=== PATIENT | male | born 1980 | race Asian ===

== ENCOUNTER 2024-04-11 02:05 | Inpatient (IN) | payer OTHER ==
[~2024-04-11] VITALS: Ht 170.2 cm; Wt 63.5 kg
[2024-04-11] VITALS (9 sets, daily range): BP systolic 93–145; BP diastolic 36–71; PULSE 67–79; RESP 18–29; TEMP 98–101; O2SAT 97–100
[~2024-04-11 02:05] MED LIST: DEXAMETHASONE 4 MG/ML VIAL ONE; ONDANSETRON 4 MG/2 ML VIAL ONE; PROPOFOL 200 MG/20 ML VIAL IV ONE; ROCURONIUM 50 MG/5 ML VIAL IV ONE
[2024-04-11 02:58] LABS: BASOPHILS % (AUTO) 0.2 % (0.0-2.0); EOSINOPHILS # (AUTO) 0.1 K/uL (0-0.4); EOSINOPHILS % (AUTO) 1.1 % (0.0-4.0); HEMATOCRIT 45.2 % (36-52); HEMOGLOBIN 15.1 g/dL (12.0-18.0); LYMPHOCYTES # (AUTO) 0.5 K/uL (2.0-11.5); LYMPHOCYTES % (AUTO) 6.2 % (20.5-51.1); MEAN CORPUSCULAR HEMOGLOBIN 30 pg (27-31); MEAN CORPUSCULAR HGB CONC 33 g/dL (33-37); MEAN CORPUSCULAR VOLUME 89.6 fL (80-94); MONOCYTES # (AUTO) 0.7 K/uL (0.8-1.0); MONOCYTES % (AUTO) 8.8 % (1.7-9.3); NEUTROPHILS # (AUTO) 6.4 K/uL (1.8-7.7); NEUTROPHILS % (AUTO) 83.7 % (42.2-75.2); PLATELET COUNT (AUTO) 276 K/uL (140-450); RED BLOOD CELL COUNT(AUTO) 5.04 MIL/uL (4.20-6.10); RED CELL DISTRIBUTION WIDTH 14.4 % (11.6-13.7); WHITE BLOOD COUNT (AUTO) 7.7 K/uL (4.8-10.8)
[2024-04-11] MEDS ORDERED: PIPERACILLIN/TAZOBACTAM 3.375 GM VIAL IV ONE (03:04)
[2024-04-11 03:12] LABS: ANION GAP 14.9 (8-16); CALCIUM 9.3 mg/dL (8.5-10.1); CARBON DIOXIDE 27.6 mmol/L (21-32); CREATININE 0.8 mg/dL (0.6-1.3)
[2024-04-11] MEDS: PIPERACILLIN/TAZOBACTAM 3.375 GM in DEXT 5% MINI-BAG PLUS 50 ML IV ONE (03:18)
[2024-04-11 03:24] LABS: POTASSIUM 6.5 mmol/L (3.5-5.1)
[2024-04-11 03:28] LABS: ALANINE AMINOTRANSFERASE 66 U/L (12-78); ALBUMIN 3.1 g/dL (3.4-5.0); ALKALINE PHOSPHATASE 134 U/L (50-136); ASPARTATE AMINOTRANSFERASE 39 U/L (15-37); BILIRUBIN,DIRECT 0.1 mg/dL (0.0-0.3); TOTAL BILIRUBIN 0.2 mg/dL (0.0-1.0); TOTAL PROTEIN, SERUM 7.7 g/dL (6.4-8.2)
[2024-04-11] MEDS: NACL 0.9% 2,000 ML IV SCH (03:33)
[2024-04-11 03:39] LABS: LACTIC ACID 4.3 mmol/L (0.4-2.0)
[2024-04-11 04:11] LABS: INR 0.96 (0.8-1.2); PARTIAL THROMBOPLASTIN TIME 23.4 secs (22-35.6); PROTHROMBIN TIME 10.1 secs (10.8-13.4)
[2024-04-11] MEDS ORDERED: KEP500L GT (05:50)
[2024-04-11] MEDS ORDERED: NOVR SUBQ (05:50)
[2024-04-11] MEDS ORDERED: LOSA-272 PO (05:54)
[2024-04-11] MEDS ORDERED: LORA-476 PO (05:54)
[2024-04-11] MEDS ORDERED: METO50TE2 PO (05:57)
[2024-04-11] MEDS ORDERED: METH100S16 (05:57)
[2024-04-11] MEDS ORDERED: SODIUM BICARBONATE 8.4% PFS 50 MEQ/50 ML SYR IVP ONE (06:01)
[2024-04-11] MEDS: CALCIUM GLUC 1 GM/50 mL NS BAG 50 ML IV ONE (06:09)
[2024-04-11] MEDS: SODIUM BICARBONATE 8.4% PFS 50 MEQ/50 ML SYR IVP ONE (06:11)
[2024-04-11 07:27] LABS: ANION GAP 10.5 (8-16); CALCIUM 8.9 mg/dL (8.5-10.1); CARBON DIOXIDE 29.6 mmol/L (21-32); CREATININE 0.8 mg/dL (0.6-1.3); POTASSIUM 4.1 mmol/L (3.5-5.1)
[2024-04-11] MEDS: DEXTROSE 50% 50 ML SYR IVP ONE (07:53)
[2024-04-11] MEDS: NACL 0.9% 1,000 ML IV ONE (08:48)
[2024-04-11] MEDS: levETIRAcetam 500 MG in NACL 0.9% 100 ML IV SCH ×2 (09:39→20:35)
[2024-04-11] MEDS ORDERED: DEXTROSE 50% 50 ML SYR IVP PRN ×2 (10:35→13:35)
[2024-04-11] MEDS: BLOOD GLUCOSE MONITORING 1 DEV DEV FS SCH ×2 (11:06→16:42)
[2024-04-11] MEDS: PIPERACILLIN/TAZOBACTAM 3.375 GM in DEXTROSE 5% 50 ML IV SCH (11:46)
[2024-04-11] MEDS ORDERED: LORazepam 1 MG TAB PO PRN (13:20)
[2024-04-11] MEDS ORDERED: HYDROcodone/APAP 7.5/325 MG 1 TAB PO PRN (13:35)
[2024-04-11] MEDS ORDERED: ALBUTEROL SULFATE/IPRATROPIU 3 ML SOL IH PRN (13:35)
[2024-04-11] MEDS ORDERED: ONDANSETRON 4 MG/2 ML VIAL IVP PRN (13:35)
[2024-04-11] MEDS ORDERED: INSULIN LISPRO SLIDING SCALE 100 UNITS/ML VIAL SUBQ PRN (13:35)
[2024-04-11] MEDS ORDERED: HYDROcodone/APAP 7.5/325 MG 1 TAB GT PRN (14:13)
[2024-04-11] MEDS ORDERED: ACETAMINOPHEN 650 MG/20.3 ML UDC GT PRN (14:15)
[2024-04-11 14:52] LABS: BASOPHILS % (AUTO) 0.4 % (0.0-2.0); EOSINOPHILS # (AUTO) 0.1 K/uL (0-0.4); HEMATOCRIT 44.5 % (36-52); HEMOGLOBIN 14.3 g/dL (12.0-18.0); LYMPHOCYTES # (AUTO) 0.9 K/uL (2.0-11.5); LYMPHOCYTES % (AUTO) 10.1 % (20.5-51.1); MEAN CORPUSCULAR HEMOGLOBIN 30 pg (27-31); MEAN CORPUSCULAR HGB CONC 32 g/dL (33-37); MEAN CORPUSCULAR VOLUME 91.8 fL (80-94); MONOCYTES # (AUTO) 0.8 K/uL (0.8-1.0); MONOCYTES % (AUTO) 9.5 % (1.7-9.3); NEUTROPHILS # (AUTO) 6.7 K/uL (1.8-7.7); PLATELET COUNT (AUTO) 353 K/uL (140-450); RED BLOOD CELL COUNT(AUTO) 4.84 MIL/uL (4.20-6.10); RED CELL DISTRIBUTION WIDTH 14.5 % (11.6-13.7); WHITE BLOOD COUNT (AUTO) 8.5 K/uL (4.8-10.8)
[2024-04-11 15:02] LABS: INR 1.01 (0.8-1.2); PARTIAL THROMBOPLASTIN TIME 24.7 secs (22-35.6); PROTHROMBIN TIME 10.6 secs (10.8-13.4)
[2024-04-11 15:47] LABS: ANION GAP 16.1 (8-16); CALCIUM 9.2 mg/dL (8.5-10.1); CARBON DIOXIDE 26.1 mmol/L (21-32); CREATININE 0.7 mg/dL (0.6-1.3); POTASSIUM 4.2 mmol/L (3.5-5.1)
[2024-04-11 15:55] LABS: LACTIC ACID 2.1 mmol/L (0.4-2.0)
[2024-04-11 16:11] LABS: AMYLASE 128 U/L (25-115); CHOL/HDL RATIO 2.7 (1-4.5); CHOLESTEROL 96 mg/dL (<200); FREE T4 (FREE THYROXINE) 0.84 ng/dL (0.76-1.46); HDL CHOLESTEROL 36 mg/dL (40-60); LDL (CALC) 47 mg/dL (60-100); LIPASE 75 U/L (16-77); MAGNESIUM 1.9 mg/dL (1.8-2.4); PHOSPHORUS 3.3 mg/dL (2.5-4.9); THYROID STIMULATING HORMONE 1.76 uIU/mL (0.34-3.74); TRIGLYCERIDES 67 mg/dL (30-150)
[2024-04-11] MEDS: ALBUTEROL SULFATE/IPRATROPIU 3 ML SOL IH SCH (19:22)
[2024-04-11] MEDS: DOCUSATE 100 MG/10 ML UDC GT SCH (20:56)
[2024-04-11] MEDS: METOPROLOL 25 MG TAB GT SCH (20:56)
[2024-04-12] VITALS (11 sets, daily range): BP systolic 105–132; BP diastolic 65–74; PULSE 56–105; RESP 18–20; TEMP 98.2–99.2; O2SAT 90–96
[2024-04-12] MEDS: INSULIN LISPRO SLIDING SCALE 100 UNITS/ML VIAL SUBQ PRN (06:32)
[2024-04-12 07:15] LABS: BASOPHILS # (AUTO) 0.1 K/uL (0.00-0.22); BASOPHILS % (AUTO) 1.2 % (0.0-2.0); EOSINOPHILS # (AUTO) 0.1 K/uL (0-0.4); EOSINOPHILS % (AUTO) 0.5 % (0.0-4.0); HEMATOCRIT 41.8 % (36-52); HEMOGLOBIN 13.8 g/dL (12.0-18.0); LYMPHOCYTES # (AUTO) 0.3 K/uL (2.0-11.5); LYMPHOCYTES % (AUTO) 3.5 % (20.5-51.1); MEAN CORPUSCULAR HEMOGLOBIN 30 pg (27-31); MEAN CORPUSCULAR HGB CONC 33 g/dL (33-37); MEAN CORPUSCULAR VOLUME 90.5 fL (80-94); MONOCYTES # (AUTO) 0.6 K/uL (0.8-1.0); NEUTROPHILS # (AUTO) 8.8 K/uL (1.8-7.7); NEUTROPHILS % (AUTO) 88.8 % (42.2-75.2); PLATELET COUNT (AUTO) 259 K/uL (140-450); RED BLOOD CELL COUNT(AUTO) 4.62 MIL/uL (4.20-6.10); RED CELL DISTRIBUTION WIDTH 14.6 % (11.6-13.7); WHITE BLOOD COUNT (AUTO) 9.9 K/uL (4.8-10.8)
[2024-04-12 07:23] LABS: ANION GAP 13.8 (8-16); CALCIUM 9.3 mg/dL (8.5-10.1); CARBON DIOXIDE 25.9 mmol/L (21-32); CREATININE 0.8 mg/dL (0.6-1.3); POTASSIUM 3.7 mmol/L (3.5-5.1)
[2024-04-12 07:27] LABS: MAGNESIUM 1.7 mg/dL (1.8-2.4); PHOSPHORUS 2.4 mg/dL (2.5-4.9)
[2024-04-12] MEDS: PANTOPRAZOLE 40 MG INJ VIAL IVP SCH (08:35)
[2024-04-12] MEDS: LOSARTAN 50 MG TAB GT SCH (08:35)
[2024-04-12] MEDS: MAG SULF 2000 MG/WATER PREMIX 50 ML IV SCH (08:37)
[2024-04-12] MEDS ORDERED: levETIRAcetam 100 MG/ML ORASYR GT SCH (09:00)
[2024-04-12] MEDS ORDERED: METOPROLOL SUCCINATE 50 MG TABER PO SCH (09:00)
[2024-04-12] MEDS: LORazepam 1 MG TAB GT PRN (11:36)
[2024-04-12] MEDS: POTASSIUM PHOSPHATE 15 MM in NACL 0.9% 250 ML IV SCH (12:47)
[2024-04-12] MEDS: levETIRAcetam 1,000 MG in NACL 0.9% 100 ML IV SCH (21:17)
[2024-04-13] VITALS (7 sets, daily range): BP systolic 94–104; BP diastolic 48–58; PULSE 75–96; RESP 18; TEMP 97.9–99.2; O2SAT 76–97
[2024-04-13 06:35] LABS: BASOPHILS % (AUTO) 0.5 % (0.0-2.0); HEMATOCRIT 40.4 % (36-52); HEMOGLOBIN 13.3 g/dL (12.0-18.0); LYMPHOCYTES # (AUTO) 0.8 K/uL (2.0-11.5); LYMPHOCYTES % (AUTO) 9.2 % (20.5-51.1); MEAN CORPUSCULAR HEMOGLOBIN 29 pg (27-31); MEAN CORPUSCULAR HGB CONC 33 g/dL (33-37); MEAN CORPUSCULAR VOLUME 89.1 fL (80-94); MONOCYTES # (AUTO) 1.2 K/uL (0.8-1.0); MONOCYTES % (AUTO) 13.9 % (1.7-9.3); NEUTROPHILS # (AUTO) 6.4 K/uL (1.8-7.7); NEUTROPHILS % (AUTO) 76.4 % (42.2-75.2); PLATELET COUNT (AUTO) 276 K/uL (140-450); RED BLOOD CELL COUNT(AUTO) 4.53 MIL/uL (4.20-6.10); RED CELL DISTRIBUTION WIDTH 14.7 % (11.6-13.7); WHITE BLOOD COUNT (AUTO) 8.4 K/uL (4.8-10.8)
[2024-04-13 06:55] LABS: PHOSPHORUS 3.3 mg/dL (2.5-4.9)
[2024-04-13 06:57] LABS: ANION GAP 11.5 (8-16); CALCIUM 8.9 mg/dL (8.5-10.1); CARBON DIOXIDE 27.3 mmol/L (21-32); CREATININE 0.8 mg/dL (0.6-1.3); POTASSIUM 3.8 mmol/L (3.5-5.1)
[2024-04-13] MEDS ORDERED: LEVE1000 PO (12:47)
[2024-04-13] MEDS ORDERED: PIPE3.3745 IV (12:47)
[2024-04-13] MEDS ORDERED: MEDS-TO-BEDS MC SCH (21:00)
== END 2024-04-13 15:24 | DRG 871 ==
LOC: MED 02:05 → MTU 09:33
DX: A41.9 Sepsis, unspecified organism (principal); J18.9 Pneumonia, unspecified organism; J69.0 Pneumonitis due to inhalation of food and vomit; E44.0 Moderate protein-calorie malnutrition; E87.1 Hypo-osmolality and hyponatremia; E87.5 Hyperkalemia; G40.909 Epilepsy, unspecified, not intractable, without status epilepticus; E11.9 Type 2 diabetes mellitus without complications; I10 Essential (primary) hypertension; E83.39 Other disorders of phosphorus metabolism; E83.42 Hypomagnesemia; Z79.4 Long term (current) use of insulin; Z79.899 Other long term (current) drug therapy; Z68.21 Body mass index [BMI] 21.0-21.9, adult; Z86.73 Personal history of transient ischemic attack (TIA), and cerebral infarction without residual deficits
CPT/HCPCS: 36415; 70450; 71045; 80048; 80076; 80173; 82140; 82150; 82550; 82553; 82948; 83036; 83605; 83690; 83735; 83880; 84100; 84439; 84443; 84484; 85025; 85610; 85730; 87040; 87081; 93005; 94640; 95816; 96361; 96365; 96375; 99291; J0610; J1100; J1815; J1953; J2405; J2470; J2543; J2704; J3475; J3490; J7030; J7060; Q0092